=== PATIENT | female | born 2000 | race Asian ===

== ENCOUNTER 2023-01-16 15:25 | Inpatient (IN) ==
[2023-01-16 17:02] LABS: Hematocrit 31.5 % (35-45); Hemoglobin 10.5 g/dL (11.5-14.3); Mean Corpuscular Hemoglobin 24.3 pg (27-33); Mean Corpuscular Hgb Conc 33.2 g/dL (31-36); Mean Corpuscular Volume 73.2 fL (80-97); Mean Platelet Volume 7.4 fL (7.5-11.2); Platelet Count 302 10^3/uL (150-450); Red Cell Distribution Width 18.2 % (12-17); White Blood Count 7.2 10^3/uL (3.8-11.8)
[2023-01-16 17:13] LABS: ALT 11 U/L (7-52); AST 19 U/L (13-39); Albumin 4.7 g/dL (3.2-5.2); Albumin/Globulin Ratio 1.7 (1-3); Alkaline Phosphatase 77 U/L (35-149); Anion Gap 10 mmol/L (2-16); Blood Urea Nitrogen 11 mg/dL (6-24); CO2 Carbon Dioxide 21 mmol/L (22-32); Calcium 9.8 mg/dL (8.6-10.3); Chloride 104 mmol/L (101-111); Creatinine, Serum 0.71 mg/dL (0.51-0.95); Globulin 2.7 g/dL (2-4); Glucose 82 mg/dL (70-100); Potassium 3.5 mmol/L (3.5-5.0); Sodium 135 mmol/L (135-145); Total Bilirubin 0.3 mg/dL (0.2-1.0); Total Protein 7.4 g/dL (6.4-8.9)
[2023-01-16 17:14] LABS: HCG Pregnancy < 0.60 mIU/mL
[2023-01-16 17:32] LABS: ABS Lymphocytes 1.8 10^3/uL (1.0-4.8); ABS Monocytes 0.6 10^3/uL (0.0-0.9); ABS Neutrophils 4.7 10^3/uL (1.5-7.6); Eosinophil % 0.5 %; Lymphocyte % 24.9 %
[2023-01-16 18:42] LABS: Salicylate < 2.50 mg/dL (<30)
[2023-01-16 18:44] LABS: Acetaminophen < 15 mcg/mL; Alcohol, S < 13 mg/dL (<13)
[2023-01-16] MEDS ORDERED: Al Hydrox/Mg Hydrox/Simet LIQ 30 ML UDC PO PRN (21:54)
[2023-01-17] MEDS: Vitamin THERAPEUTIC TAB PO SCH (13:38)
[2023-01-17] MEDS: [UNRECOGNIZED DRUG - OTHER] PO SCH (20:57)
[2023-01-18] MEDS: Vitamin THERAPEUTIC TAB PO SCH (09:21)
[2023-01-18] MEDS: [UNRECOGNIZED DRUG - OTHER] PO SCH (22:23)
[2023-01-19] MEDS: Vitamin THERAPEUTIC TAB PO SCH (08:44)
[2023-01-19] MEDS: [UNRECOGNIZED DRUG - OTHER] PO SCH (21:00)
[2023-01-20] MEDS: Vitamin THERAPEUTIC TAB PO SCH (10:11)
[2023-01-20] MEDS: [UNRECOGNIZED DRUG - OTHER] PO SCH (21:20)
[2023-01-21 02:23] VITALS: BP 117/85
[2023-01-21] MEDS: Vitamin THERAPEUTIC TAB PO SCH (09:56)
== END 2023-01-21 13:11 | disposition home or self-care (01) | DRG 885 ==
LOC: ED 15:25 → EDHOLD 21:16 → BSU 21:48
PROVIDERS: ADMIT Psychiatry & Neurology Psychiatry; ATTEND Psychiatry & Neurology Psychiatry